=== PATIENT | female | born 1970 | race African-American/Black ===

== ENCOUNTER 2019-10-06 21:09 | Emergency (ER) | payer SELFPAY ==
[~2019-10-06] VITALS: Ht 170.2 cm; Wt 68.0 kg
[2019-10-06 21:17] VITALS: BP 160/98
== END 2019-10-06 22:31 | disposition left against medical advice (07) ==
LOC: ER 21:17
DX: S01.112A Laceration without foreign body of left eyelid and periocular area, initial encounter (principal); S01.81XA Laceration without foreign body of other part of head, initial encounter; Z90.49 Acquired absence of other specified parts of digestive tract; Z53.21 Procedure and treatment not carried out due to patient leaving prior to being seen by health care provider; X58.XXXA Exposure to other specified factors, initial encounter; Y93.89 Activity, other specified; Y92.89 Other specified places as the place of occurrence of the external cause; Y99.8 Other external cause status